=== PATIENT | male | born 1995 ===

== ENCOUNTER 2022-08-15 20:21 | Emergency (ER) | payer OTHER, MEDICAID, SELFPAY ==
[2022-08-15 20:24] VITALS: BP 148/86; PULSE 72; RESP 18; TEMP 36.3; O2SAT 98; BMI 23.1
--- NOTE | 2022-08-15 20:25 | ED_ITS ---
HPI - Male Genitourinary General Chief complaint: Urogenital-Male Stated complaint: irritation in penis Time Seen by Provider: 08/15/22 23:56 Source: patient Mode of arrival: ambulatory Limitations: no limitations History of Present Illness HPI Narrative: Patient comes here for small papules on the glans for last few days no STI no pain and discharge no urinary symptoms patient not diabetic Related Data Previous Rx's Medication Instructions Recorded bacitracin zinc 500 unit-polymyxin 1 appl topical DAILY #14.2 grams 08/16/22 B 10,000 unit/gram topical ointment Allergies Allergy/AdvReac Type Severity Reaction Status Date / Time No Known Allergies Allergy Unverified 12/04/19 19:53 [No Known Allergies*] Review of Systems Review of Systems: Yes all other systems are reviewed and are negative [facility] Social History Social History Alcohol intake: current Alcohol intake frequency: holidays/special occasions only Smoked in Last 30 Days: No Use of substances other than those prescribed or required for medical reasons: Yes Substance Use Type: Marijuana Substance Use Frequency: Chronic Longstanding Advance Directives: No Advance Directives Information Provided: No Physical Exam Vital Signs: Vital Signs: Last Vital Signs Temp 97.4 F 08/15/22 20:24 Pulse 72 08/15/22 20:24 Resp 18 08/15/22 20:24 BP 148/86 H 08/15/22 20:24 Pulse Ox 98 08/15/22 20:24 O2 Del Method Room Air 08/15/22 20:24 BMI result Body Mass Index 23.1 : Male genitals images: 1. Small 2 mm papules at the tip of the glans no vesicles no discharge Course Course Course Narrative: RME - 26 yo male presents to the ER for evaluation of intermittent red, irritation of the tip of his penis for the last 2 weeks. No discharge, t estiuclar pain, urinary symptoms. He is uncircumcised. Plan: UA & exam in C Medical Decision Making Medical Decision Making [facility] Narrative: Patient with focal papular dermatitis no signs of infection patient advised to not set area and use bacitracin ointment Lab Data Labs: Lab Results 08/15/22 Range/Units 23:28 Urine Color Yellow Urine Appearance Clear Urine pH 6.5 (5.0-9.0) Ur Specific [place] 1.025 (1.005-1.025) Urine Protein Negative (Neg-Trace) mg/dL Urine Glucose (UA) Negative (Negative) mg/dL Urine Ketones Trace (Negative) mg/dL Urine Blood Negative (Negative) Urine Nitrite Negative (Negative) Ur Leukocyte Esterase Negative (Negative) Discharge Plan Discharge Clinical Impression: Dermatitis Patient Disposition: Home, Self-Care Instructions: Dermatitis (ED) Additional Instructions: Keep the area clean Does not seem to be infected You may apply bacitracin ointment for irritation Prescriptions: New bacitracin zinc-polymyxin B 500-10,000 unit/gram ointment 1 appl topical DAILY Qty: 14.2 0RF
[2022-08-15 23:38] LABS: Appearance Urine Clear; Color Urine Yellow; Glucose Urine UA Negative (Negative); Leukocyte Esterase Urine Negative (Negative); Nitrite Urine Negative (Negative); PH 6.5 (5.0-9.0); Specific Gravity - Urine 1.025 (1.005-1.025); Urine Blood Negative (Negative); Urine Ketones Trace mg/dL (Negative); Urine Protein Negative (Neg-Trace)
[2022-08-16 00:22] LABS: Glucose, Whole Blood 113 mg/dL (60-115)
[2022-08-16 11:16] LABS: CT PCR NOT DETECTED (Not Detect.); NG PCR NOT DETECTED (Not Detect.)
== END 2022-08-16 00:17 | disposition home or self-care (01) ==
PROVIDERS: Physician Assistant; Emergency Provider Internal Medicine
DX: L30.8 Other specified dermatitis (principal); N48.89 Other specified disorders of penis
CPT/HCPCS: 0353U; 81003; 82947; 99283; 99284